=== PATIENT | female | born 1995 | race Caucasian/White ===

== ENCOUNTER 2018-05-23 22:43 | Inpatient (IN) | payer BC ==
[2018-05-24] MEDS ORDERED: LORazepam 1 MG TAB PO STA ×3 (00:06→06:55)
[2018-05-24] MEDS ORDERED: NICOTINE 21MG/24HR PATCH TRANSDERM STA (00:27)
[2018-05-24 00:40] LABS: Amphetamine Screen,Urine Not Detected (NotDetected); Barbiturate Screen,Urine Not Detected (NotDetected); Benzodiazepines Screen,Urine Not Detected (NotDetected); Cocaine Screen,Urine Not Detected (NotDetected); Methadone Screen, Urine Not Detected (NotDetected); Opiate Screen,Urine Not Detected (NotDetected); Oxycodone Screen, Urine Not Detected (NotDetected); Phencyclidine Screen,Urine Not Detected (NotDetected); Tricyclic Antidepressant,Urine Not Detected (NotDetected); Urn Cannabinoid Scrn Not Detected (NotDetected)
[2018-05-24] MEDS ORDERED: LORazepam 1 MG TAB PO PRN (09:43)
[2018-05-24] MEDS ORDERED: MAGNESIUM HYDROXIDE 2,400 MG/10 ML CUP PO PRN (09:43)
[2018-05-24] MEDS ORDERED: MAG HYDROX/AL HYDROX/SIMETH 30 ML CUP PO PRN (09:43)
[2018-05-24] MEDS ORDERED: ZIPRASIDONE 20 MG VIAL IM PRN (09:43)
[2018-05-24] MEDS ORDERED: INFLUENZA VACCINE (6 MOS+) 60 MCG/0.5 ML SYRINGE IM ONE (09:48)
[2018-05-24] MEDS ORDERED: PNEUMOCOCCAL VACC-PNEUMOVAX 23 25 MCG/0.5 ML VIAL IM ONE (09:49)
[2018-05-24 10:06] VITALS: BMI 20.2
[2018-05-24] MEDS ORDERED: LORazepam 2 MG/ML INJ IM PRN (10:28)
--- NOTE | 2018-05-24 11:28 | P.HP ---
Psychiatric H&P - . History & Physical: Allergies Allergy/AdvReac Type Severity Reaction Status Date / Time No Known Allergies Allergy Verified 05/24/18 10:12 Vital Signs Temp 98.9 F 05/24/18 09:53 Pulse 130 H 05/24/18 09:53 Resp 18 05/24/18 09:53 BP 129/79 05/24/18 09:53 Pulse Ox 98 05/24/18 08:46 Intake & Output 05/23/18 05/24/18 05/24/18 18:59 06:59 18:59 Weight 56.699 kg Laboratory Last Values Urine HCG, Qual Not Detected (Not Detectd) 05/24/18 00:17 Urine Opiates Screen Not Detected (NotDetected) 05/24/18 00:17 Ur Oxycodone Screen Not Detected (NotDetected) 05/24/18 00:17 Urine Methadone Screen Not Detected (NotDetected) 05/24/18 00:17 Ur Propoxyphene Screen Not Detected (NotDetected) 05/24/18 00:17 Ur Barbiturates Screen Not Detected (NotDetected) 05/24/18 00:17 U Tricyclic Antidepress Not Detected (NotDetected) 05/24/18 00:17 Ur Phencyclidine Scrn Not Detected (NotDetected) 05/24/18 00:17 Ur Amphetamines Screen Not Detected (NotDetected) 05/24/18 00:17 U Methamphetamines Scrn Not Detected (NotDetected) 05/24/18 00:17 U Benzodiazepines Scrn Not Detected (NotDetected) 05/24/18 00:17 Urine Cocaine Screen Not Detected (NotDetected) 05/24/18 00:17 U Marijuana (THC) Screen Not Detected (NotDetected) 05/24/18 00:17 05/24/18 11:19 IDENTIFYING DATA: This is a 23-year-old single female who identifies as a male, who was admitted to the mental health unit through the emergency room for suicidal ideation. HPI: The patient states "I'm done I'm tired of feeling this way and drinking every day". By this the patient means he is having suicidal ideation and feels hopeless. He indicates his appetite has been decreased with no reported weight loss energy has been low sleep has been poor. He endorses feelings of anhedonia. The patient identifies no clear precipitant to this admission but states he's been severely depressed ever since the of his father in Nov. He has been drinking heavily daily since then consuming 12-20 beers after work each evening. He endorses generalized feelings of anxiety that are present on a daily basis and are excessive. He endorses infrequent panic attacks. No history of hypomanic or manic episodes. He indicates he experienced a visual hallucination of his father in the recent past but it is endorsing no hallucinations now. He endorses no specific delusions. He resides with his mother and states there are no firearms in the home. PAST PSYCHIATRIC HISTORY: This would be the patient's third psychiatric admi [facility]. There were 2 prior admissions at age 12 at [facility] and [facility]. Both were subsequent to overdoses one involving Ativan and another involving Wellbutrin. The Wellbutrin overdose resulted in a grand mal seizure. The patient has had outpatient care in the past in the form of therapy currently does not work with a therapist or psychiatrist. He has been on no other psychotropic medications other than those noted above. PMH: None reported ALLERGIES: NO KNOWN DRUG ALLERGIES MEDICATIONS: None CHEMICAL DEPENDENCY HISTORY: The patient reports drinking 12-20, 12 ounce beers per day since November 2016. Prior to that he would binge drink on the weekends and have up to 5 beers per evening. He has been to [facility] in the past for alcohol dependence and abusing Flexeril. He reports no use of any other substances at this time. FAMILY PSYCHIATRIC HISTORY: The patient believes his mother is diagnosed with depression and anxiety and treated successfully with Lexapro, no suicides in the family FAMILY CHEMICAL DEPENDENCY HISTORY: Both grandfathers are known to have an alcohol use disorder SOCIAL HISTORY: The patient is 23 years old single and resides with his mother. The patient identifies as a male for numerous years but has been dressing that way for the last 7 years. 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 No history of service. One older brother in terms of siblings. They are originally from [place]. The patient endorses no legal history and endorses no abuse history. MENTAL STATUS EXAM: The patient is a 23-year-old female who identifies as being male. The patient has shorter hair and is dressed in hospital gowns. There is a large visible tattoo on the right forearm that appears to be a flag. The patient reports a depressed mood with hopelessness thinking and suicidal ideation. The patient reports no homicidal ideation intent or plan. There is no report of auditory or visual hallucinations at this time no report of specific delusions. Speech is spontaneous fluent nonpressured. The patient does not appear hypomanic or manic. There is no verbal or physical aggressiveness. The patient is tearful throughout the session. There is no evidence of involuntary repetitive movements. Insight and judgment limited. The patient is oriented to person place and date and can name the days of the week backwards. STRENGTHS/WEAKNESSES: Strengths: Willingness to receive treatment, employment, support from mother weaknesses: Current severe symptoms of depression no outpatient follow-up INTELLECTUAL FUNCTIONING: Average IMPRESSIONS: [] 1. Major depressive disorder recurrent severe without psychosis, generalized anxiety disorder, alcohol use disorder PLAN: He patient has been admitted to the mental health unit voluntarily. We reviewed the presenting symptoms as well as treatment options. We are monitoring for alcohol withdrawal using the CIWA protocol and Ativan is available as needed. We will initiate Lexapro 10 mg daily for depressive and anxiety symptoms as it appears his mother has been successfully treated for si milar symptoms with that medication. The patient will contact his mother to clarify further. The patient will undergo routine history and physical exam area social work will meet with the patient to complete a psychosocial assessment and begin discharge planning. We will involve family in the patient's treatment and discharge planning as the patient will allow. The patient is encouraged to participate in the milieu and we will monitor the patient for safety.
[2018-05-24] MEDS: LORazepam 1 MG TAB PO PRN (11:44)
--- NOTE | 2018-05-24 13:29 | P.MDCNMH ---
History of Present Illness H&P Date: 05/24/18 Chief Complaint: Depression This is a 23-year-old female patient of Dr. Lucio identifies as a male and prefers to be called [place]. Patient has not been seen in the office in greater than 1 year. Patient has no significant past medical history other than tobacco use and dependence of alcohol abuse. Patient states that she has been really depressed and not taking her medications and stopped taking all of her medications about a year ago or more. She reports suicidal thoughts but no plan. Patient is not following with a counselor or psychiatrist. Patient complains of had a hard time ever since her dad in November 2016. Patient states that she has been drinking 16-20 beers a night and was treated at [facility] 3 years ago. Urine drug screen was negative and urine hCG nondetected. Patient is seen on the mental health unit. Patient denies any medical concerns at this time other than alcohol abuse. Patient has been started on a nicotine patch. Review of Systems All systems: negative Constitutional: Denies chills, Denies fatigue, Denies fever Eyes: denies blurred vision, denies pain Ears, nose, mouth and throat: Denies dental pain, Denies dysphagia, Denies headache, Denies mouth pain, Denies nasal congestion, Denies nasal discharge, Denies sore throat, Denies vertigo Cardiovascular: Denies chest pain, Denies shortness of breath Respiratory: Denies cough Gastrointestinal: Denies abdominal pain, Denies diarrhea, Denies nausea, Denies vomiting Genitourinary: Denies dysuria, Denies hematuria Musculoskeletal: Denies frequent falls, Denies gait dysfunction, Denies muscle weakness, Denies myalgias Integumentary: Denies pruritus, Denies rash, Denies wounds Neurological: Denies aphasia, Denies change in speech, Denies confusion, Denies gait dysfunction, Denies headaches, Denies numbness, Denies vertigo, Denies weakness Psychiatric: Reports anxiety, Reports depression, Reports sadness/tearfulness, Reports suicidal ideation, Denies confusion Endocrine: Denies fatigue, Denies weight change Past Medical History Past Medical History: No Reported History History of Any Multi-Drug Resistant Organisms: None Reported Past Surgical History: Adenoidectomy, Tonsillectomy Past Psychological History: Depression Smoking Status: Current every day smoker Past Alcohol Use History: Abuse, Daily Additional Past Alcohol Use History / Comment(s): Patient is a smoker one and a half packs per day. Patient drinks 16-20 beers per night. Past Drug Use History: None Reported - Past Family History Father Additional Family Medical History / Comment(s): Father at age 65 from lung cancer. Mother Additional Family Medical History / Comment(s): Mother is alive at age 54 with no major medical problems. Patient has 1 brother with no major medical problems. Medications and Allergies Home Medications Medication Instructions Recorded Confirmed Type No Known Home Medications 05/23/18 05/24/18 History Allergies Allergy/AdvReac Type Severity Reaction Status Date / Time No Known Allergies Allergy Verified 05/24/18 10:12 Physical Exam Vitals: Vital Signs Temp Pulse Pulse Resp BP BP Pulse Ox 05/24/18 09:53 98.9 F 130 H 18 129/79 05/24/18 09:20 98.9 F 130 H 18 129/79 05/24/18 08:46 96.9 F L 107 H 18 109/66 98 05/24/18 07:04 98.2 F 111 H 16 119/74 98 05/24/18 06:08 98.2 F 97 14 109/60 97 05/24/18 00:25 98.2 F 97 18 131/94 97 05/23/18 22:47 98.1 F 116 H 18 143/96 99 Intake and Output 05/23/18 05/24/18 05/24/18 22:59 06:59 14:59 Other: Weight 56.699 kg - Constitutional General appearance: average body habitus, cooperative, mild distress, no no acute distress - EENT Eyes: PERRLA, dentition normal, normal appearance - Neck Neck: no lymphadenopathy, normal ROM, no thyromegaly - Respiratory Respiratory: bilateral: CTA, negative: diminished, rales, rhonchi, wheezing - Cardiovascular Rhythm: regular Heart sounds: normal: S1, S2 Abnormal Heart Sounds: no systolic murmur, no diastolic murmur, no S3 Gallop, no S4 Gallop - Gastrointestinal General gastrointestinal: no distended, no hepatomegaly, normal bowel sounds, no splenomegaly, no tenderness - Integumentary Integumentary: no cellulitis, no cyanotic, no pale, no rash - Neurologic Neurologic: CNII-XII intact - Musculoskeletal Musculoskeletal: gait normal, no generalized weakness, strength equal bilaterally - Psychiatric Psychiatric: A&O x's 3, appropriate affect, intact judgment & insight (Patient is tearful during examination) Cranial Nerve Examination - Cranial Nerves Cranial Nerve II- Optic: Intact Cranial Nerve III- Oculomotor: Intact Cranial Nerve IV- Trochlear: Intact Cranial Nerve V- Trigeminal: Intact Cranial Nerve - Abducens: Intact Cranial Nerve VII- Facial: Intact Cranial Nerve VIII- Auditory: Intact Cranial Nerve IX- Glossopharyngeal: Intact Cranial Nerve X- Vagus: Intact Cranial Nerve XI- Accessory: Intact Cranial Nerve XII- Hypoglossal: Intact Assessment and Plan Plan: 1. Recurrent depression with suicidal ideation. Continue current management on the mental health unit. Patient is currently on Lexapro, Geodon as needed. 2. Tobacco use and dependence. Continue nicotine patch. 3. Alcohol abuse. Continue Ativan per protocol. Thank you kindly for this consultation. Please have patient follow-up in the office after discharge. Impression and plan of care have been directed as dictated by the signing physician. Haley Coates nurse practitioner acting as scribe for signing physician.
[2018-05-24] MEDS: ESCITALOPRAM 10 MG TAB PO SCH (16:27)
[2018-05-24] MEDS: LORazepam 1 MG TAB PO SCH ×2 (16:27→21:20)
[2018-05-24] MEDS: ACETAMINOPHEN TAB 325 MG TAB PO PRN ×2 (16:33→21:20)
[2018-05-25] MEDS: LORazepam 1 MG TAB PO PRN (06:37)
--- NOTE | 2018-05-25 09:35 | P.PN ---
Progress Note - Text Interval history: The patient is found in his room. He follows me to an interview room. The patient indicates that mood is a little better he feels safe. He attended the goal setting group and plans on attending groups throughout the day. He did have a conversation with his mother that was supportive and they plan to visit him over visiting this evening. We reviewed the Lexapro there are no questions or concerns regarding that medication. We reviewed the Ativan. Vital signs reviewed. We discussed goals for developing coping skills. He states he is willing to participate in inpatient chemical dependency treatment and we will explore that but it's likely his insurance will not cover it and less he needs continued detox services. Mental status exam: The patient is a thin female who identifies as a male. Hygiene and grooming are adequate speech is fluent spontaneous nonpressured. Mood is described as depressed. He reports feeling safe here in the hospital in terms of suicidal thoughts. No homicidal ideation intent or plan. There is no evidence of hypomania or zee. No evidence of psychosis. Thought process is linear goal-directed there is no evidence of tangential thinking loose associations or flight of ideas. Insight and judgment limited. With outstretched arms there is some fine tremor bilaterally in the hands area Plan: The patient will continue on the current psychotropic medication we will monitor the CIWA scores. When possible we will begin tapering off of the Ativan. The patient is encouraged to participate in groups and we will monitor for safety.
[2018-05-25] MEDS: ESCITALOPRAM 10 MG TAB PO SCH (09:37)
[2018-05-25] MEDS: NICOTINE 21MG/24HR PATCH TRANSDERM SCH (09:38)
[2018-05-25] MEDS: LORazepam 1 MG TAB PO SCH ×3 (09:39→21:18)
[2018-05-25 10:07] LABS: Basophils # (A) 0.1 k/uL (0-0.2); Basophils % (A) 1 %; Eosinophils # (A) 0.1 k/uL (0-0.7); Eosinophils % (A) 1 %; HCT 44.1 % (34.0-46.0); HGB 14.1 gm/dL (11.4-16.0); Lymphocytes # (A) 0.8 k/uL (1.0-4.8); Lymphocytes % (A) 9 %; MCH 30.7 pg (25.0-35.0); MCV 95.8 fL (80.0-100.0); Mean Platelet Volume 6.9; Monocytes # (A) 0.5 k/uL (0-1.0); Monocytes % (A) 5 %; Neutrophils # (A) 7.9 k/uL (1.3-7.7); Neutrophils % (A) 84 %; Platelet Count 288 k/uL (150-450); RDW 12.9 % (11.5-15.5); WBC 9.5 k/uL (3.8-10.6)
[2018-05-25 10:29] LABS: ALT 31 U/L (9-52); AST 20 U/L (14-36); Albumin 4.2 g/dL (3.5-5.0); Alkaline Phosphatase 55 U/L (38-126); Anion Gap 8 mmol/L; Bilirubin, Delta 0.1 mg/dL (0.0-0.2); Bilirubin,Unconjugated 0.6 mg/dL (0.0-1.1); Blood Urea Nitrogen 10 mg/dL (7-17); Calcium 9.8 mg/dL (8.4-10.2); Carbon Dioxide 28 mmol/L (22-30); Chloride 101 mmol/L (98-107); Cholesterol 155 mg/dL (<200); Glucose 121 mg/dL (74-99); HDL Cholesterol 93 mg/dL (40-60); LDL Cholesterol,Calculated 54 mg/dL (0-99); Potassium 4.4 mmol/L (3.5-5.1); Sodium 137 mmol/L (137-145); Total Bilirubin 0.7 mg/dL (0.2-1.3); Total Protein 6.5 g/dL (6.3-8.2); Triglycerides 40 mg/dL (<150)
[2018-05-26 01:14] LABS: Hemoglobin A1C 4.9 % (4.0-6.0)
[2018-05-26 06:30] VITALS: RESP 14
[2018-05-26] MEDS: NICOTINE 21MG/24HR PATCH TRANSDERM SCH (08:27)
[2018-05-26] MEDS: LORazepam 1 MG TAB PO SCH ×2 (08:27→20:55)
[2018-05-26] MEDS: ESCITALOPRAM 10 MG TAB PO SCH (08:27)
--- NOTE | 2018-05-26 09:25 | P.PN ---
Progress Note - Text Interval history: The patient is found in group he follows me to an interview room. he indicates that her mood is improving. he had a supportive visit from his mother and brother last evening. We reviewed the purpose of the Lexapro he has no questions or concerns. CIWA scores are reviewed. he did not require use of the when necessary Ativan. he attended groups yesterday appetite stable he is attending to her ADLs. We discussed options for chemical dependency treatment once discharged. he does still have interest in an IOP program and states he would like to attend AA meetings. he recognizes the benefits of maintaining his sobriety as he feels more "clearheaded". Mental status exam: The patient is a thin female who identifies as a male. He is dressed in his own clothing eye contact is appropriate hygiene grooming are good. Speech is fluent spontaneous nonpressured. He indicates his mood is better he is able to demonstrate a more euthymic affect area he is reporting no acute suicidal or homicidal ideation intent or plan. He endorses no auditory or visual hallucinations or any specific delusions. There is no observed evidence of psychosis. He demonstrates no evidence of hypomania or zee. No verbal or physical aggressiveness insight and judgment improving. He is oriented to person place and date. Plan: The patient is clinically stabilizing we will continue the Lexapro is written. We will discuss options for IOP upon discharge with social work. Social work is attempting to arrange a support meeting involving the patient's mother. We will consider a discharge in the next 1-2 days of the patient is clinically stable. We will continue to monitor him for safety and encourage full participation in the milieu.
[2018-05-27 06:32] VITALS: BP 126/66; PULSE 77; TEMP 98.4
[2018-05-27] MEDS: NICOTINE 21MG/24HR PATCH TRANSDERM SCH (08:00)
[2018-05-27] MEDS: ESCITALOPRAM 10 MG TAB PO SCH (08:00)
[2018-05-27] MEDS: LORazepam 1 MG TAB PO SCH (08:01)
--- NOTE | 2018-05-27 09:05 | P.DS ---
Providers Date of admission: 05/24/18 08:33 Expected date of discharge: 05/27/18 Attending physician: Edmund Hickman Consults: 05/24/18 09:43 Consult Physician Routine Consulting Provider: Peyton Lucio Consult Reason/Comments: H & P and medical care Do you want consulting provider notified?: Yes Primary care physician: Peyton Naveed - Discharge Diagnosis(es) (1) Major depressive disorder, recurrent severe without psychotic features Current Visit: Yes Status: Acute Priority: High (2) Generalized anxiety disorder Current Visit: Yes Status: Acute Priority: Medium (3) Alcohol use disorder Current Visit: Yes Status: Acute Priority: High Hospital Course: Brief summary of admission note: This patient is a 23-year-old female who identifies as a male. He was admitted to the mental health unit through the emergency room for suicidal ideation. He had indicated that he was tired of living and tired of drinking everyday to cope. Appetite had been decreased he was feeling hopeless he reported poor sleep and low energy. He describes struggling with depressive symptoms and worsened alcohol use since the of his father in November 2016. For full details please refer to my psychiatric evaluation dated 05/24/2018 Summary of hospital course: The patient was admitted to the mental health unit voluntarily. We reviewed the presenting symptoms and treatment options. We decided to initiate Lexapro 10 mg daily for depressive and anxiety symptoms. The patient tolerated the Lexapro well without any report of side effects. Additionally we monitored for alcohol withdrawal using the CIWA protocol and providing Ativan when needed. The patient was compliant with attending groups. The patient reported a progressive improvement of symptoms while here. It was determined that it would be in his best interest to attend inpatient chemical dependency treatment and that is being arranged. The patient's mother will be participating in a support meeting this morning. The patient was seen by internal medicine for routine history and physical exam. Social work has met with the patient to complete a psychosocial assessment and other times for discharge planning purposes. Mental status exam: The patient is a thin female who identifies as a male. He is wearing his eyeglasses is dressed casually in a hooded sweatshirt and jeans. Eye contact is appropriate speech is fluent spontaneous nonpressured. He denies having any suicidal or homicidal ideation intent or plan. He reports no longer feeling hopeless. He reports no auditory or visual hallucinations or any specific delusions. He demonstrates no tangential thinking loose associations or flight of ideas. He does not appear hypomanic or manic. He demonstrates no verbal or physical aggressiveness. Affect is appropriately expressive. Insight and judgment grossly intact. He remains oriented to person place and date. He demonstrates future oriented thinking in terms of socializing upon discharge attending AA and attending inpatient chemical dependency treatment within the week. Impressions 1. Major depressive disorder recurrent severe without psychosis, generalized anxiety disorder, alcohol use disorder Plan: The patient will be discharged mental health unit today he will return residing with his mother. He will continue on Lexapro 10 mg daily. Arrangements are being made to schedule inpatient chemical dependency treatment at [facility] within the week. The patient's instructed to abstain from any use of alcohol marijuana or illicit drugs as these will elevate his safety risk. At this time there is no imminent safety risk the patient is appropriate for discharge from the mental health unit to outpatient care/inpatient chemical dependency treatment. Patient Condition at Discharge: Stable Plan - Discharge Summary Discharge Rx Participant: No New Discharge Prescriptions: New Nicotine 21Mg/24Hr Patch [Habitrol] 1 patch TRANSDERM DAILY #10 patch Escitalopram [Lexapro] 10 mg PO DAILY #30 tab Discharge Medication List Escitalopram [Lexapro] 10 mg PO DAILY #30 tab 05/27/18 [Rx] Nicotine 21Mg/24Hr Patch [Habitrol] 1 patch TRANSDERM DAILY #10 patch 05/27/18 [Rx] Follow up Appointment(s)/Referral(s): Peyton Lucio MD [Primary Care Provider] - 1 Week
== END 2018-05-27 16:10 | disposition home or self-care (01) | DRG 885 ==
LOC: EC 22:43 → 3MHU 05-24 08:33
PROVIDERS: ADMIT Psychiatry & Neurology Psychiatry; ATTEND Psychiatry & Neurology Psychiatry
DX: F33.2 Major depressive disorder, recurrent severe without psychotic features (principal); R45.851 Suicidal ideations; F41.1 Generalized anxiety disorder; F10.10 Alcohol abuse, uncomplicated; F64.9 Gender identity disorder, unspecified; F41.0 Panic disorder [episodic paroxysmal anxiety]; Z23 Encounter for immunization; Z71.6 Tobacco abuse counseling; F17.210 Nicotine dependence, cigarettes, uncomplicated; Z91.5 Personal history of self-harm; Z81.8 Family history of other mental and behavioral disorders; Z81.1 Family history of alcohol abuse and dependence; Z80.1 Family history of malignant neoplasm of trachea, bronchus and lung
CPT/HCPCS: 80053; 80061; 80306; 81025; 82075; 82248; 83036; 84443; 85025; 90686; 90732

== ENCOUNTER 2018-10-01 15:42 | Emergency (ER) | payer BC, OTHER ==
--- NOTE | 2018-10-01 16:00 | ED ---
General Adult HPI - General Chief complaint: Psychiatric Symptoms Stated complaint: Mental Health Time Seen by Provider: 10/01/18 15:52 Source: patient, RN notes reviewed Mode of arrival: ambulatory Limitations: no limitations - History of Present Illness Initial comments: 23-year-old female with a past medical history of depression, chronic daily alcohol abuse presents to the emergency department for a chief complaint of depression. Patient states she has had chronic depression but this worsen significantly in the past week. States she has been having thoughts of not wanting to be here anymore. States she feels suicidal but denies a plan. States she has had these thoughts before. Patient states she that she was admitted about 4 months ago for similar complaints. States she was supposed to be taking Lexapro but has not taken it due to having no insurance or ability to pay for it. States she has not tried to get insurance.Patient has no other complaints at this time including shortness of breath, chest pain, abdominal pain, nausea or vomiting, headache, or visual changes. - Related Data Previous Rx's Medication Instructions Recorded Escitalopram [Lexapro] 10 mg PO DAILY #30 tab 05/27/18 Nicotine 21Mg/24Hr Patch [Habitrol] 1 patch TRANSDERM DAILY #10 patch 05/27/18 Allergies Allergy/AdvReac Type Severity Reaction Status Date / Time No Known Allergies Allergy Verified 10/01/18 15:51 Review of Systems ROS Statement: Those systems with pertinent positive or pertinent negative responses have been documented in the HPI. ROS Other: All systems not noted in ROS Statement are negative. Past Medical History Past Medical History: No Reported History History of Any Multi-Drug Resistant Organisms: None Reported Past Surgical History: Adenoidectomy, Tonsillectomy Past Psychological History: Depression Smoking Status: Current every day smoker Past Alcohol Use History: Abuse, Daily Past Drug Use History: None Reported - Past Family History Father Additional Family Medical History / Comment(s): Father at age 65 from lung cancer. Mother Additional Family Medical History / Comment(s): Mother is alive at age 54 with no major medical problems. Patient has 1 brother with no major medical problems. General Exam Limitations: no limitations General appearance: alert, in no apparent distress Head exam: Present: atraumatic, normocephalic, normal inspection Eye exam: Present: normal appearance, PERRL, EOMI. Absent: scleral icterus, conjunctival injection ENT exam: Present: normal exam, mucous membranes moist Neck exam: Present: normal inspection. Absent: tenderness, meningismus, lymphadenopathy Respiratory exam: Present: normal lung sounds bilaterally. Absent: respiratory distress, wheezes, rales, rhonchi, stridor Cardiovascular Exam: Present: regular rate, normal rhythm, normal heart sounds. Absent: systolic murmur, diastolic murmur, rubs, gallop, clicks Neurological exam: Present: alert, oriented X3 Psychiatric exam: Present: depressed (tearful), suicidal ideation. Absent: homicidal ideation Course Vital Signs 10/01/18 15:51 Temperature 97.9 F Pulse Rate 89 Respiratory 16 Rate Blood Pressure 140/95 O2 Sat by Pulse 98 Oximetry Medical Decision Making - Medical Decision Making 23-year-old female presents to the emergency department for a chief complaint of suicidal thoughts. Patient states she is not taking her antidepressant medication and this past week her depression has worsened and she has felt suicidal. Denies any inciting factors for this. Patient was initially tearful on presentation. Patient was evaluated by [facility]. It on reevaluation patient is smiling and laughing. Denying any active suicidal thoughts. EPS recommends discharge home with outpatient follow-up. They have arranged for patient to follow-up at [facility] to have help with filling medications. They have also given many other outpatient referrals. Patient is happy with this plan and ready for discharge. She will return here if she has any worsening thoughts. - Lab Data Lab Results 10/01/18 Range/Units 20:06 Urine Opiates Screen Not Detected (NotDetected) Ur Oxycodone Screen Not Detected (NotDetected) Urine Methadone Screen Not Detected (NotDetected) Ur Propoxyphene Screen Not Detected (NotDetected) Ur Barbiturates Screen Not Detected (NotDetected) U Tricyclic Antidepress Not Detected (NotDetected) Ur Phencyclidine Scrn Not Detected (NotDetected) Ur Amphetamines Screen Not Detected (NotDetected) U Methamphetamines Scrn Not Detected (NotDetected) U Benzodiazepines Scrn Not Detected (NotDetected) Urine Cocaine Screen Not Detected (NotDetected) U Marijuana (THC) Screen Not Detected (NotDetected) Disposition Clinical Impression: Depression Disposition: HOME SELF-CARE Condition: Good Instructions (If sedation given, give patient instructions): Depression (ED) Additional Instructions: Please follow up with primary care and [facility] in 1-2 days. Please return to the emergency department if you have any worsening symptoms or thoughts of suicide. Is patient prescribed a controlled substance at d/c from ED?: No Referrals: Peyton Lucio MD [Primary Care Provider] - 1-2 days Time of Disposition: 21:27
[2018-10-01 20:32] LABS: Amphetamine Screen,Urine Not Detected (NotDetected); Barbiturate Screen,Urine Not Detected (NotDetected); Benzodiazepines Screen,Urine Not Detected (NotDetected); Cocaine Screen,Urine Not Detected (NotDetected); Methadone Screen, Urine Not Detected (NotDetected); Opiate Screen,Urine Not Detected (NotDetected); Oxycodone Screen, Urine Not Detected (NotDetected); Phencyclidine Screen,Urine Not Detected (NotDetected); Tricyclic Antidepressant,Urine Not Detected (NotDetected); Urn Cannabinoid Scrn Not Detected (NotDetected)
[2018-10-01 21:41] VITALS: BP 121/86; PULSE 87; RESP 14; TEMP 98.6
== END 2018-10-01 21:47 | disposition home or self-care (01) ==
LOC: EC 15:42
DX: F32.9 Major depressive disorder, single episode, unspecified (principal); R45.851 Suicidal ideations; F17.200 Nicotine dependence, unspecified, uncomplicated
CPT/HCPCS: 80306; 82075; 99285

== ENCOUNTER 2020-04-02 17:35 | Emergency (ER) | payer BC, OTHER ==
[2020-04-02] MEDS ORDERED: LORazepam 2 MG/ML INJ IM STA (17:56)
--- NOTE | 2020-04-02 17:59 | ED ---
General Adult HPI - General Chief complaint: Shortness of Breath Stated complaint: COVID +, SOB Time Seen by Provider: 04/02/20 17:40 Source: patient, RN notes reviewed, old records reviewed Mode of arrival: ambulatory Limitations: no limitations - History of Present Illness Initial comments: This is a 24 year old female who presents emergency department stating that he decrease ago she was diagnosed with ". Patient states she felt short of breath and wasn't sure it was anxiety or was actually short of breath she wanted to come in and be evaluated. Patient denies any chest pain or palpitations. Patient denies any fever chills or cough. Patient denies any abdominal pain patient denies nausea vomiting diarrhea. - Related Data Previous Rx's Medication Instructions Recorded Escitalopram [Lexapro] 10 mg PO DAILY #30 tab 05/27/18 Nicotine 21Mg/24Hr Patch [Habitrol] 1 patch TRANSDERM DAILY #10 patch 05/27/18 Allergies Allergy/AdvReac Type Severity Reaction Status Date / Time No Known Allergies Allergy Verified 04/02/20 17:47 Review of Systems ROS Statement: Those systems with pertinent positive or pertinent negative responses have been documented in the HPI. ROS Other: All systems not noted in ROS Statement are negative. Past Medical History Past Medical History: No Reported History History of Any Multi-Drug Resistant Organisms: None Reported Past Surgical History: Adenoidectomy, Tonsillectomy Past Psychological History: Depression Smoking Status: Current every day smoker Past Alcohol Use History: Abuse, Daily Past Drug Use History: None Reported - Past Family History Father Additional Family Medical History / Comment(s): Father at age 65 from lung cancer. Mother Additional Family Medical History / Comment(s): Mother is alive at age 54 with no major medical problems. Patient has 1 brother with no major medical problems. General Exam - General Exam Comments Initial Comments: GENERAL: Patient is well-developed and well-nourished. Patient is nontoxic and well- hydrated and is in no acute distress. ENT: Neck is soft and supple. No significant lymphadenopathy is noted. Oropharynx is clear. Moist mucous membranes. Neck has full range of motion without eliciting any pain. EYES: The sclera were anicteric and conjunctiva were pink and moist. Extraocular movements were intact and pupils were equal round and reactive to light. Eyelids were unremarkable. PULMONARY: Unlabored respirations. Good breath sounds bilaterally. No rhonchi or wheezing or Rales noted. Patient is oxygenating at 100% on room air CARDIOVASCULAR: There is a regular rate and rhythm without any murmurs gallops or rubs. ABDOMEN: Soft and nontender with normal bowel sounds. SKIN: Skin is clear with no lesions or rashes and otherwise unremarkable. NEUROLOGIC: Patient is alert and oriented x3. Cranial nerves II through XII are grossly intact. Motor and sensory are also intact. Normal speech, volume and content. Symmetrical smile. MUSCULOSKELETAL: Normal extremities with adequate strength and full range of motion. No lower extremity swelling or edema. No calf tenderness. LYMPHATICS: No significant lymphadenopathy is noted PSYCHIATRIC: Patient is mildly anxious Limitations: no limitations Course Vital Signs 04/02/20 04/02/20 04/02/20 17:44 18:25 19:24 Temperature 98.6 F Pulse Rate 92 75 Respiratory 18 18 22 Rate Blood Pressure 144/94 O2 Sat by Pulse 100 99 Oximetry Medical Decision Making - Medical Decision Making Chest x-ray showed no acute abnormalities. Patient is ambulate around the emergency department she was oxygenating 99-100% and she was never tachycardic. Patient states she felt considerably better after the Ativan. She wanted no further workup. Disposition Clinical Impression: Dyspnea, Anxiety Disposition: HOME SELF-CARE Condition: Good Instructions (If sedation given, give patient instructions): Dyspnea (ED) Is patient prescribed a controlled substance at d/c from ED?: No Referrals: None,Stated [Primary Care Provider] - 1-2 days Time of Disposition: 20:42
--- NOTE | 2020-04-02 18:56 | XR ---
EXAMINATION TYPE: XR chest 2V DATE OF EXAM: 04/02/2020 COMPARISON: 12/23/2008. HISTORY: Shortness of breath. Positive Covid. TECHNIQUE: Frontal and lateral views of the chest are obtained. FINDINGS: There is no focal air space opacity, pleural effusion, or pneumothorax seen. The cardiac silhouette size is within normal limits. The osseous structures are intact. IMPRESSION: No acute cardiopulmonary process.
[2020-04-02 20:46] VITALS: RESP 18
[2020-04-02 21:00] VITALS: BP 137/80; PULSE 92; TEMP 98.8
== END 2020-04-02 21:00 | disposition home or self-care (01) ==
LOC: EC 17:35
DX: R06.00 Dyspnea, unspecified (principal); F41.9 Anxiety disorder, unspecified; F17.200 Nicotine dependence, unspecified, uncomplicated
CPT/HCPCS: 71046; 99285; 96372; J2060